=== PATIENT | female | born 1980 | race Caucasian/White ===

== ENCOUNTER 2020-05-08 14:35 | Emergency (ER) | payer BC ==
[2020-05-08] MEDS ORDERED: BABY ASPIRIN 81 MG CHEW PO ONE (14:56)
[2020-05-08] MEDS ORDERED: BABY ASPIRIN 81 MG CHEW ONE (14:58)
[2020-05-08 15:04] LABS: Absolute Neutrophil Ct (ANC) 4.32 (1.4-6.9); BASOPHIL % 0.5 % (0.0-0.4); Basophil (Absolute #) 0.04 (0-0.4); Eosinophil % 4.1 % (0.00-5.0); Eosinophil (Absolute #) 0.31 (0-0.5); Hematocrit 28.9 % (35-47); Hemoglobin 8.2 gm/dl (12.0-16.0); Lymphocyte (Absolute #) 2.23 (1.0-4.6); Lymphocytes % 29.5 % (24.0-44.0); Mean Cell Volume 76.7 fl (78-100); Mean Corpuscular Hemoglobin 21.8 pg (26-32); Mean Corpuscular Hgb Concent. 28.4 g/dl (32-36); Mean Platelet Volume 9.2 fl (7.5-11.0); Monocyte (Absolute #) 0.66 (0.0-1.3); Monocytes % 8.7 % (0.0-12.0); Neutrophil % 57.2 % (36.0-66.0); Platelet Count 424 K/mm3 (150-450); Red Blood Count 3.77 M/mm3 (4.1-5.4); Red Cell Distribution Width 16.4 % (11.5-14.0); White Blood Count 7.6 K/mm3 (4.0-10.5)
[2020-05-08 15:15] LABS: Appearance CLOUDY (CLEAR); Bacteria RARE /HPF (NEGATIVE); Bilirubin NEGATIVE (NEGATIVE); Blood NEGATIVE Ery/ul (0-5); Epithelial Cells MODERATE /HPF (FEW); Glucose NEGATIVE (NEGATIVE); Ketones NEGATIVE (NEGATIVE); Leukocyte Esterase LARGE (NEGATIVE); Mucus SLIGHT /HPF (NEGATIVE); Nitrite NEGATIVE (NEGATIVE); Protein,Urine Dip 30 (Negative); Specific Gravity 1.019 (1.005-1.025); Urobilinogen NEGATIVE mg/dL (0-1)
--- NOTE | 2020-05-08 15:18 | ERPHSYRPT ---
- History of Present Illness Time Seen by Provider: 05/08/20 14:50 Historian: patient Exam Limitations: no limitations Patient Subjective Stated Complaint: HTN Triage Nursing Assessment: Patient ambulated back to ED and transferred self to bed. Patient A+O X3. Patient's skin pink, warm and dry. Patient states her left arm started hurting at 1130 and was a tightness and burning that didn't go away. Patient also complains of chest pressure during this event. Patient states the left arm pain as lessened and is now 4/10. Lungs clear a/p olivia. Heart tones audible. Physician History: Patient is a 40-year-old female presents to our ED as referral from her primary care doctor. Patient concerned about chest pain radiating to her left arm. Patient states that she developed left arm pain and chest pressure approximately 11:30 AM. Patient checked her blood pressure and it was elevated. Patient became concerned. She called her primary care doctor who advised her to come to our ED for an evaluation. Symptoms are constant. Symptoms are mild to moderate in intensity. No specific worsening or improving factors. Patient is otherwise healthy. She voices no other complaints or concerns at this time. Timing/Duration: today Activities at Onset: none Quality: pressure Location: substernal Chest Pain Radiation: arm (Radiation to left arm.) Severity of Pain-Max: moderate Severity of Pain-Current: mild Modifying Factors: Improves With: nothing Associated Symptoms: denies symptoms Prior Chest Pain/Cardiac Workup: no prior cardiac workup Nitro Today/Relief: no nitro taken today Aspirin Treatment Today: no aspirin today Allergies/Adverse Reactions: No Known Drug Allergies Allergy (Unverified 05/08/20 14:45) Hx Influenza Vaccination/Date Given: Yes Hx Pneumococcal Vaccination/Date Given: No Immunizations Up to Date: Yes Travel Risk - International Travel Have you traveled outside of the country in past 3 weeks: No - Coronavirus Screening Are you exhibiting any of the following symptoms?: No Close contact with a COVID-19 positive Pt in past 14-21 Days: No - Review of Systems Constitutional: No Symptoms, No Fever, No Chills Eyes: No Symptoms Ears, Nose, & Throat: No Symptoms Respiratory: No Symptoms, No Cough, No Dyspnea Cardiac: No Symptoms, No Chest Pain, No Edema, No Syncope Abdominal/Gastrointestinal: No Symptoms, No Abdominal Pain, No Nausea, No Vomiting, No Diarrhea Genitourinary Symptoms: No Symptoms, No Dysuria Musculoskeletal: No Symptoms, No Back Pain, No Neck Pain Skin: No Symptoms, No Rash Neurological: No Symptoms, No Dizziness, No Focal Weakness, No Sensory Changes Psychological: No Symptoms Endocrine: No Symptoms Hematologic/Lymphatic: No Symptoms Immunological/Allergic: No Symptoms All Other Systems: Reviewed and Negative - Past Medical History Pertinent Past Medical History: Yes Neurological History: No Pertinent History ENT History: No Pertinent History Cardiac History: Hypertension Respiratory History: No Pertinent History Endocrine Medical History: No Pertinent History Musculoskeletal History: No Pertinent History GI Medical History: No Pertinent History History: No Pertinent History Psycho-Social History: Anxiety Female Reproductive Disorders: No Pertinent History - Past Surgical History Past Surgical History: Yes Neuro Surgical History: No Pertinent History Cardiac: No Pertinent History Respiratory: No Pertinent History Gastrointestinal: No Pertinent History Genitourinary: No Pertinent History Musculoskeletal: No Pertinent History Female Surgical History: No Pertinent History - Social History Smoking Status: Never smoker Exposure to second hand smoke: No Drug Use: none Patient Lives Alone: No - Female History Hx Last Menstrual Period: few days ago Hx Now: No - Nursing Vital Signs Nursing Vital Signs: Initial Vital Signs Temperature 98.0 F 05/08/20 14:47 Pulse Rate 71 05/08/20 14:47 Respiratory Rate 18 05/08/20 14:47 Blood Pressure 160/114 05/08/20 14:47 O2 Sat by Pulse Oximetry 97 05/08/20 14:47 Pain Scale Pain Intensity 0 - Physical Exam General Appearance: no apparent distress, alert Eye Exam: PERRL/EOMI, eyes nml inspection Ears, Nose, Throat Exam: normal ENT inspection, moist mucous membranes Neck Exam: normal inspection, non-tender, supple, full range of motion Respiratory Exam: normal breath sounds, lungs clear, No respiratory distress Cardiovascular Exam: regular rate/rhythm, normal heart sounds Gastrointestinal/Abdomen Exam: soft, No tenderness, No mass Back Exam: normal inspection, No CVA tenderness, No vertebral tenderness Extremity Exam: normal inspection, normal range of motion Neurologic Exam: alert, oriented x 3, cooperative, normal mood/affect, sensation nml, No motor deficits Skin Exam: normal color, warm, dry SpO2 Interpretation: normal SpO2: 97 O2 Delivery: Room Air - Course Nursing assessment & vital signs reviewed: Yes EKG Interpreted by Me: RATE (69), Sinus Rhythm, NORMAL AXIS, NORMAL INTERVALS - Radiology Exams Chest X-ray Interpretation: Interpreted by me (Lung garrido are clear. Cardiac silhouette normal. Normal bony thorax. No acute pathology observed.) Ordered Tests: Active Orders 24 hr Category Date Time Status Shot Bagger STAT Care 05/08/20 14:54 Active EKG-ER Only STAT Care 05/08/20 14:53 Active IV Insertion STAT Care 05/08/20 14:53 Active Pulse Oximetry (ED) STAT Care 05/08/20 14:53 Active CHEST 1 VIEW (PORTABLE) Stat Exams 05/08/20 14:54 Completed CBC W DIFF Stat Lab 05/08/20 14:53 Completed CULTURE,URINE Stat Lab 05/08/20 14:56 Received D-DIMER QUANTITATIVE Stat Lab 05/08/20 14:53 Completed Ferritin Stat Lab 05/08/20 Ordered Folate (Folic Acid) Stat Lab 05/08/20 Ordered HCG,QUALITATIVE URINE Stat Lab 05/08/20 14:57 Completed MAGNESIUM Stat Lab 05/08/20 14:53 Completed NT PRO BNP Stat Lab 05/08/20 14:53 Completed TROPONIN Q3H Lab 05/08/20 15:00 Completed TROPONIN Q3H Lab 05/08/20 17:54 Completed TROPONIN Q3H Lab 05/08/20 21:00 Ordered TROPONIN Q3H Lab 05/09/20 00:00 Ordered TROPONIN Q3H Lab 05/09/20 03:00 Ordered UA W/RFX UR CULTURE Stat Lab 05/08/20 14:56 Completed Urine Triage Profile Stat Lab 05/08/20 14:56 Completed Medication Summary Discontinued Medications Generic Name Dose Route Start Last Admin Trade Name Freq PRN Reason Stop Dose Admin Aspirin 324 mg 05/08/20 14:56 05/08/20 14:59 Baby Aspirin 81 Mg Chew PO 05/08/20 14:57 324 mg STAT ONE Administration Aspirin Confirm 05/08/20 14:58 Baby Aspirin 81 Mg Chew Administered 05/08/20 14:59 Dose 324 mg .ROUTE .STK-MED ONE Lab/Rad Data: Laboratory Result Diagrams 05/08/20 14:53 Laboratory Results 05/08/20 05/08/20 05/08/20 Range/Units 17:54 15:00 14:57 WBC (4.0-10.5) K/mm3 RBC (4.1-5.4) M/mm3 Hgb (12.0-16.0) gm/dl Hct (35-47) % MCV (78-100) fl MCH (26-32) pg MCHC (32-36) g/dl RDW (11.5-14.0) % Plt Count (150-450) K/mm3 MPV (7.5-11.0) fl Gran % (36.0-66.0) % Eos # (Auto) (0-0.5) Absolute Lymphs (auto) (1.0-4.6) Absolute Monos (auto) (0.0-1.3) Lymphocytes % (24.0-44.0) % Monocytes % (0.0-12.0) % Eosinophils % (0.00-5.0) % Basophils % (0.0-0.4) % Absolute Granulocytes (1.4-6.9) Basophils # (0-0.4) D-Dimer (215-500) ng/mL Magnesium (1.6-2.3) mg/dL Troponin I < 0.012 < 0.012 (0.000-0.034) ng/mL NT-Pro-B Natriuret Pep (0-450) pg/mL Urine Color (YELLOW) Urine Appearance (CLEAR) Urine pH (5-6) Ur Specific Arnold (1.005-1.025) Urine Protein (Negative) Urine Ketones (NEGATIVE) Urine Blood (0-5) Stanley/ul Urine Nitrite (NEGATIVE) Urine Bilirubin (NEGATIVE) Urine Urobilinogen (0-1) mg/dL Ur Leukocyte Esterase (NEGATIVE) Urine WBC (Auto) (0-5) /HPF Urine RBC (Auto) (0-2) /HPF U Epithel Cells (Auto) (FEW) /HPF Urine Bacteria (Auto) (NEGATIVE) /HPF Urine Mucus (Auto) (NEGATIVE) /HPF Urine Culture Reflexed (NO) Urine Glucose (NEGATIVE) mg/dL Urine HCG, Qual NEGATIVE (Negative) Urine Opiates Level (NEGATIVE) Ur Methadone (NEGATIVE) Urine Barbiturates (NEGATIVE) Ur Phencyclidine (PCP) (NEGATIVE) Urine Amphetamine (NEGATIVE) U Benzodiazepine Level (NEGATIVE) Urine Cocaine (NEGATIVE) Urine Marijuana (THC) (NEGATIVE) Slides for Path Review 03/23/21 03/23/21 03/23/21 Range/Units 14:56 14:56 14:53 WBC (4.0-10.5) K/mm3 RBC (4.1-5.4) M/mm3 Hgb (12.0-16.0) gm/dl Hct (35-47) % MCV (78-100) fl MCH (26-32) pg MCHC (32-36) g/dl RDW (11.5-14.0) % Plt Count (150-450) K/mm3 MPV (7.5-11.0) fl Gran % (36.0-66.0) % Eos # (Auto) (0-0.5) Absolute Lymphs (auto) (1.0-4.6) Absolute Monos (auto) (0.0-1.3) Lymphocytes % (24.0-44.0) % Monocytes % (0.0-12.0) % Eosinophils % (0.00-5.0) % Basophils % (0.0-0.4) % Absolute Granulocytes (1.4-6.9) Basophils # (0-0.4) D-Dimer 273 (215-500) ng/mL Magnesium (1.6-2.3) mg/dL Troponin I (0.000-0.034) ng/mL NT-Pro-B Natriuret Pep (0-450) pg/mL Urine Color YELLOW (YELLOW) Urine Appearance CLOUDY (CLEAR) Urine pH 7.0 (5-6) Ur Specific Arnold 1.019 (1.005-1.025) Urine Protein 30 (Negative) Urine Ketones NEGATIVE (NEGATIVE) Urine Blood NEGATIVE (0-5) Stanley/ul Urine Nitrite NEGATIVE (NEGATIVE) Urine Bilirubin NEGATIVE (NEGATIVE) Urine Urobilinogen NEGATIVE (0-1) mg/dL Ur Leukocyte Esterase LARGE (NEGATIVE) Urine WBC (Auto) 16-25 (0-5) /HPF Urine RBC (Auto) 3-5 (0-2) /HPF U Epithel Cells (Auto) MODERATE (FEW) /HPF Urine Bacteria (Auto) RARE (NEGATIVE) /HPF Urine Mucus (Auto) SLIGHT (NEGATIVE) /HPF Urine Culture Reflexed YES (NO) Urine Glucose NEGATIVE (NEGATIVE) mg/dL Urine HCG, Qual (Negative) Urine Opiates Level NEGATIVE (NEGATIVE) Ur Methadone NEGATIVE (NEGATIVE) Urine Barbiturates NEGATIVE (NEGATIVE) Ur Phencyclidine (PCP) NEGATIVE (NEGATIVE) Urine Amphetamine NEGATIVE (NEGATIVE) U Benzodiazepine Level NEGATIVE (NEGATIVE) Urine Cocaine NEGATIVE (NEGATIVE) Urine Marijuana (THC) NEGATIVE (NEGATIVE) Slides for Path Review 05/08/20 05/08/20 Range/Units 14:53 14:53 WBC 7.6 (4.0-10.5) K/mm3 RBC 3.77 L (4.1-5.4) M/mm3 Hgb 8.2 L (12.0-16.0) gm/dl Hct 28.9 L (35-47) % MCV 76.7 L (78-100) fl MCH 21.8 L (26-32) pg MCHC 28.4 L (32-36) g/dl RDW 16.4 H (11.5-14.0) % Plt Count 424 (150-450) K/mm3 MPV 9.2 (7.5-11.0) fl Gran % 57.2 (36.0-66.0) % Eos # (Auto) 0.31 (0-0.5) Absolute Lymphs (auto) 2.23 (1.0-4.6) Absolute Monos (auto) 0.66 (0.0-1.3) Lymphocytes % 29.5 (24.0-44.0) % Monocytes % 8.7 (0.0-12.0) % Eosinophils % 4.1 (0.00-5.0) % Basophils % 0.5 (0.0-0.4) % Absolute Granulocytes 4.32 (1.4-6.9) Basophils # 0.04 (0-0.4) D-Dimer (215-500) ng/mL Magnesium 1.9 (1.6-2.3) mg/dL Troponin I (0.000-0.034) ng/mL NT-Pro-B Natriuret Pep 229 (0-450) pg/mL Urine Color (YELLOW) Urine Appearance (CLEAR) Urine pH (5-6) Ur Specific Arnold (1.005-1.025) Urine Protein (Negative) Urine Ketones (NEGATIVE) Urine Blood (0-5) Stanley/ul Urine Nitrite (NEGATIVE) Urine Bilirubin (NEGATIVE) Urine Urobilinogen (0-1) mg/dL Ur Leukocyte Esterase (NEGATIVE) Urine WBC (Auto) (0-5) /HPF Urine RBC (Auto) (0-2) /HPF U Epithel Cells (Auto) (FEW) /HPF Urine Bacteria (Auto) (NEGATIVE) /HPF Urine Mucus (Auto) (NEGATIVE) /HPF Urine Culture Reflexed (NO) Urine Glucose (NEGATIVE) mg/dL Urine HCG, Qual (Negative) Urine Opiates Level (NEGATIVE) Ur Methadone (NEGATIVE) Urine Barbiturates (NEGATIVE) Ur Phencyclidine (PCP) (NEGATIVE) Urine Amphetamine (NEGATIVE) U Benzodiazepine Level (NEGATIVE) Urine Cocaine (NEGATIVE) Urine Marijuana (THC) (NEGATIVE) Slides for Path Review YES - Progress Progress: improved Air Movement: good Progress Note: 05/08/20 18:40 Patient reassessed. She is pain-free. UA suggestive of possible UTI. Hemoglobin 8.2. MCV is low. Patient has a microcytic anemia. We advised admission for cardiac rule out and transfusion. Patient states she does not want to be admitted. Patient declined a transfusion. Case discussed with Dr. Miryam israel. She will follow up with patient tomorrow in her office. Troponin negative x2. Iron studies added per Dr. Baez request. She will follow up on results. Triglycerides resulted from lab work-up that was done just prior to her arrival to our ED. Triglycerides are elevated at 678 however patient states that this was a nonfasting study. This information was conveyed to Dr. Baez she will follow-up. Plan of care discussed with patient. She agrees to follow- up with Dr. Baez within 48 hours for reevaluation. She voices no other complaints at this time. Patient currently asymptomatic. Vitals within normal limits. Will discharge at this time. Cardiac work-up essentially negative at this time. Patient symptoms likely stemming from anemia. Later in the course of patient's stay she voiced that she occasionally experiences lightheadedness upon standing quickly. Orthostatics however in our ED were within normal limits. Portions of this note were created with voice recognition technology. There may be grammatical, spelling, punctuation or sound alike errors 05/08/20 18:43 Blood Culture(s) Obtained: No Antibiotics given: No Discussed with : Paul Will see patient in: office Counseled pt/family regarding: lab results, diagnosis, need for follow-up, rad results - Departure Departure Disposition: Home Clinical Impression: Symptomatic anemia, Microcytic anemia Condition: Stable Critical Care Time: No Referrals: ROSIO BAEZ MD [Primary Care Provider] - Additional Instructions: Discharge/Care Plan MARYJO GAO was seen on 05/08/20 in the Emergency Room. The patient was counseled regarding Diagnosis,Lab results, Imaging studies, need for follow up and when to return to the Emergency Room. Prescriptions given: Discharge Note I have spoken with the patient and/or caregivers. I have explained the patient's condition, diagnosis and treatment plan based on the information available to me at this time. I have answered the patient's and/or caregiver's questions and addressed any concerns. The patient and/or caregivers have as good understanding of the patient's diagnosis, condition and treatment plan as can be expected at this point. The vital signs have been stable. The patient's condition is stable and appropriate for discharge from the emergency department. The patient will pursue further outpatient evaluation with the primary care physician or other designated or consulting physician as outlined in the disc harge instructions. The patient and/or caregivers are agreeable to this plan of care and follow-up instructions have been explained in detail. The patient and/or caregivers have received these instruction. The patient/and or caregivers are aware that any significant change in condition or worsening of symptoms should prompt an immediate return to this or the closest emergency department or call 911.
[2020-05-08 15:29] LABS: MAGNESIUM 1.9 mg/dL (1.6-2.3)
[2020-05-08 15:34] LABS: Amphetamine,Urine NEGATIVE (NEGATIVE); Barbiturate,Urine NEGATIVE (NEGATIVE); Benzodiazepine,Urine NEGATIVE (NEGATIVE); Cocaine,Urine NEGATIVE (NEGATIVE); Methadone,Urine NEGATIVE (NEGATIVE); Opiate,Urine NEGATIVE (NEGATIVE); PCP,Urine NEGATIVE (NEGATIVE); THC,Urine NEGATIVE (NEGATIVE)
[2020-05-08 15:48] LABS: Slide Review 1 YES
--- NOTE | 2020-05-08 16:42 | XRAY ---
Indication: Left arm tightness. Comparison: None Portable chest demonstrates probable right costophrenic angle nipple shadow. Remaining heart, lungs, and bony thorax normal.
[2020-05-08 18:38] VITALS: BP 122/72; PULSE 75
[2020-05-08 18:43] VITALS: O2SAT 97
[2020-05-08 19:05] LABS: Iron 30 ug/dL (37-170); Iron Saturation 6 % (20-39); TIBC 539 ug/dL (265-462)
[2020-05-08 20:04] LABS: Ferritin 5.39 ng/mL (6.24-137); Folate (Folic Acid) 8.7 ng/mL (2.76 - >20)
== END 2020-05-08 18:47 | disposition home or self-care (01) ==
LOC: ED 14:35
DX: D64.9 Anemia, unspecified (principal); D50.9 Iron deficiency anemia, unspecified
CPT/HCPCS: 36000; 36415; 71045; 80307; 81001; 82728; 82746; 83540; 83550; 83735; 83880; 84466; 84484; 84703; 85025; 85379; 87086; 93005; 93041; 94760; 99284; A9270-GY

== ENCOUNTER 2020-06-20 05:55 | Day surgery (SDC) | payer BC ==
[2020-06-20] MEDS ORDERED: Lactated Ringers 1,000 ML IV SCH (06:30)
[2020-06-20] MEDS ORDERED: DIPRIVAN 200 MG/20 ML IV ONE (07:02)
[2020-06-20] MEDS ORDERED: Xylocaine-Mpf 2% 5 Ml Vial ONE (07:02)
[2020-06-20 08:09] VITALS: BP 145/65; PULSE 79; O2SAT 94
--- NOTE | 2020-06-20 10:43 | OP ---
SURGERY DATE/TIME: 06/20/2020 0713 PREOPERATIVE DIAGNOSIS: Anemia. POSTOPERATIVE DIAGNOSIS: Mild gastritis. PROCEDURE: EGD. SURGEON: Kun Melton M.D. ANESTHESIA: MAC by Alex Linares CRNA. ESTIMATED BLOOD LOSS: Minimal. SPECIMENS: Two cold forceps biopsies of the gastric antrum. DESCRIPTION OF PROCEDURE: After informed written consent was obtained, the patient was taken to the endoscopy suite. She underwent monitored anesthesia after a bite block was inserted. Anesthesia was titrated to the desired level of consciousness. The endoscope was inserted into the posterior oropharynx and under direct visualization the esophagus was traversed. The esophageal mucosa had a normal appearance free of any lesions or defects. Upon entry into the stomach there was normal rugated gastric mucosa. There were no ulcerations or areas of bleeding present. There was some mild gastritis-type changes in the antrum. The duodenum had a normal mucosal architecture. Two cold forceps biopsies were taken in the gastric antrum and sent for Helicobacter pylori testing with minimal blood loss. The remainder of the mucosal stricture again appeared within normal limits upon withdrawal of the scope. The scope was removed and the patient was transferred to the recovery room in good condition. I have advised that she continue her Prilosec, avoid any NSAID's and follow up in one week for pathology.
== END 2020-06-20 08:15 | disposition home or self-care (01) ==
LOC: SDC 05:55
PROVIDERS: ATTEND Family Medicine
DX: K29.70 Gastritis, unspecified, without bleeding (principal); D64.9 Anemia, unspecified
CPT/HCPCS: 84703; J2704

== ENCOUNTER 2020-08-14 06:12 | Day surgery (SDC) | payer BC ==
[2020-08-14] MEDS ORDERED: CEFAZOLIN 2 GM-D5W BAG** 2 GM/50 ML ML IV SCH (06:30)
[2020-08-14] MEDS ORDERED: Lactated Ringers 1,000 ML IV SCH (06:30)
[2020-08-14] MEDS ORDERED: SUBLIMAZE 100 MCG/2 ML ONE (11:12)
[2020-08-14] MEDS ORDERED: Xylocaine-Mpf 2% 5 Ml Vial ONE (11:12)
[2020-08-14] MEDS ORDERED: DIPRIVAN 200 MG/20 ML IV ONE ×2 (11:12→12:22)
[2020-08-14] MEDS ORDERED: Zofran 4 MG/2 ML VIAL ONE (11:12)
[2020-08-14] MEDS ORDERED: Versed 2 MG/2 ML Injection ONE (11:12)
[2020-08-14] MEDS ORDERED: Decadron 4 MG INJ ONE (12:16)
[2020-08-14 13:15] VITALS: O2SAT 94
[2020-08-14 14:18] VITALS: BP 134/84; PULSE 82
--- NOTE | 2020-08-15 09:24 | OP ---
SURGERY DATE/TIME: 08/14/2020 1203 PREOPERATIVE DIAGNOSIS: Menorrhagia and anemia. POSTOPERATIVE DIAGNOSIS: Menorrhagia and anemia. PROCEDURE: Hysteroscopy, D&C with NovaSure ablation. SURGEON: Beka Spain D.O. GOLD BURNISHER: Ivana Bear rn surgical pcu. ANESTHESIA: General. ESTIMATED BLOOD LOSS: Minimal. COMPLICATIONS: None. INDICATIONS: The risks, benefits, indications and alternatives of the procedure were reviewed with the patient prior to the procedure. The patient understood the risk of infection, bleeding, bowel injury, bladder injury, ureteral injury, uterine perforation, pelvic infection and thromboembolic disorder associated with the surgery however desires to have this surgery as a possible means to alleviate her current medical condition. DESCRIPTION OF PROCEDURE AND FINDINGS: At this point the patient is taken to the operating room, given general sedation, placed in the dorsal lithotomy position, prepped and draped in the usual sterile fashion. A weighted speculum is then placed in the patient's vagina and the anterior lip of the cervix is grasped with a single tooth tenaculum. Endocervical dilators were advanced through the endocervical canal as a means to dilate the cervix and the uterus was sounded to approximately 9 cm. From this point a 5 mm hysteroscope is then placed in through the endocervical canal where visualization of the uterine cavity appeared to be within normal limits with no gross abnormalities. The hysteroscope is then removed. At this point a curette is then placed into the fundus of the uterus where curettage is performed in all quadrants of the uterus retrieving a mild amount of tissue. From this point hemostasis is obtained. After curettage the curette was removed and the NovaSure was then placed into the fundus of the uterus and retracted approximately 1 cm with a length of 6.5 cm. The width measured to be 4.6 cm. The NovaSure was then turned on with an ablative time of 59 seconds of ablation. The NovaSure was disengaged and the instrument removed from the uterine cavity. From this point all instruments were removed from the patient's vaginal region. The patient was then taken out of dorsal lithotomy position and taken out of anesthesia and was then taken to the recovery room in stable condition. All instruments and laps were accounted for x2.
== END 2020-08-14 14:00 | disposition home or self-care (01) ==
LOC: SDC 06:12
PROVIDERS: ATTEND Obstetrics & Gynecology
DX: N92.0 Excessive and frequent menstruation with regular cycle (principal); D64.9 Anemia, unspecified
CPT/HCPCS: 84703; J0690; J1100; J2250; J2405; J2704; J3010